=== PATIENT | male | born 1935 | race Caucasian/White ===

== ENCOUNTER 2018-01-16 13:15 | Observation (INO) ==
[2018-01-16] MEDS ORDERED: ONDANSETRON 4 MG/2 ML VIAL IV STA (13:27)
[2018-01-16] MEDS ORDERED: ASPIRIN 325 MG TABLET PO STA (13:27)
[2018-01-16] MEDS ORDERED: MORPHINE 4 MG/1 ML VIAL IV STA (13:27)
[2018-01-16] MEDS ORDERED: NITROGLYCERIN 2% OINT 1 INCH/GM PACK TOP STA (13:27)
[2018-01-16] MEDS ORDERED: ALUM/MAG/SIMETH/LIDO VISC 1:1 30 ML BOTTLE PO STA (13:27)
[2018-01-16 14:16] LABS: Basophils % 0.5 % (0.0-0.8); Eosinophils # 0.2 10*3/uL (0.0-0.87); Eosinophils % 2.8 % (0.00-10.9); Hematocrit 43.2 VOL% (42.0-52.0); Hemoglobin 14.7 GM/DL (14.0-18.0); Immature Granulocytes % 0.1 %; Immature Granulocytes Absolute 0.01 #; Lymphocytes # 1.6 10*3/uL (1.4-4.0); Lymphocytes % 20.5 % (21.2-54.2); Mean Corpuscular Hemoglobin 33 PG (27-34); Mean Corpuscular Volume 95.6 FL (87-102); Mean Platelet Volume 9.1 FL (9.6-12.0); Monocytes # 0.7 10*3/uL (0.11-0.8); Monocytes % 8.3 % (1.7-12.7); Neutrophils # 5.3 10*3/uL (1.4-7.4); Neutrophils % 67.8 % (38.7-73.9); Platelet Count 235 T/CUMM (130-400); Red Blood Count 4.52 MC/CUMM (3.8-5.5); Red Cell Distribution Width 12.7 % (9.3-17.3); White Blood Count 7.8 T/CUMM (4-12)
[2018-01-16 14:26] LABS: PT Patient Result 10.1 SECS
[2018-01-16 14:52] LABS: Albumin 3.5 G/DL (3.4-5.0); Bilirubin,Total 1.9 MG/DL (0.2-1.0); Calcium 8.9 MG/DL (8.5-10.1); Osmolality,Calculated 281.3 MOS/KG (273-304); Potassium 4.4 MMOL/L (3.5-5.1)
[2018-01-16 15:05] LABS: Apearance,Urine CLEAR (Clear); Bilirubin,Urine Negative (Negative); Blood, Urine Negative (Negative); Glucose,Urine (UA) Negative (Negative); Ketones,Urine Negative (Negative); Mucus,Urine Occasional /LPF (Occasional); Nitrite,Urine Negative (Negative); Protein,Urine Negative; Squamous Epithelial Cell,Urine Occasional /HPF (0-10); Urine Color Yellow (Yellow); Urine Specific Gravity 1.006 (1.001-1.035); Urine Urobilinogen < 2.0 EU/DL (0.2-1.0); WBC,Urine <1 /HPF (0-6)
[2018-01-16] MEDS ORDERED: ENOXAPARIN 100 MG/ML SYRINGE SUBCUT STA (15:08)
[2018-01-16] MEDS ORDERED: ONDANSETRON 4 MG/2 ML VIAL IV PRN (15:55)
[2018-01-16] MEDS: MORPHINE 4 MG/1 ML VIAL IV PRN ×2 (16:27→20:00)
[2018-01-16 16:48] LABS: Risk Ratio 4.57; VLDL CHOLESTEROL 36.2 MG/DL
[2018-01-16] MEDS ORDERED: CELECOXIB 200 MG CAPSULE PO SCH (17:00)
[2018-01-16] MEDS ORDERED: TAMSULOSIN 0.4 MG CAPSULE PO SCH (18:00)
[2018-01-16] MEDS ORDERED: ASPIRIN EC 325 MG TABLET PO SCH (19:00)
[2018-01-16] MEDS ORDERED: DUTASTERIDE 0.5 MG CAPSULE PO SCH (19:00)
[2018-01-16] MEDS: NITROGLYCERIN 2% OINT 1 INCH/GM PACK TOP SCH ×2 (19:17→23:42)
[2018-01-16] MEDS ORDERED: DORZOLAMIDE/TIMOLOL OPH SOLN 10 ML BOTTLE BOTH EYES SCH (21:00)
[2018-01-17] MEDS ORDERED: ENOXAPARIN 60 MG/0.6 ML SYRINGE SUBCUT SCH (04:00)
[2018-01-17] MEDS: NITROGLYCERIN 2% OINT 1 INCH/GM PACK TOP SCH ×2 (05:28→17:57)
[2018-01-17 08:39] LABS: Calcium 8.3 MG/DL (8.5-10.1); Osmolality,Calculated 281.3 MOS/KG (273-304); Potassium 4.2 MMOL/L (3.5-5.1)
[2018-01-17] MEDS ORDERED: PANTOPRAZOLE 40 MG TABLET PO SCH (09:00)
[2018-01-17] MEDS ORDERED: REGADENOSON 0.4 MG/5 ML SYRINGE IV ONE (13:53)
[2018-01-17 17:56] VITALS: BP 136/82
[2018-01-17] MEDS ORDERED: SIMVASTATIN 40 MG TABLET PO SCH (21:00)
[2018-01-18] MEDS ORDERED: ASPIRIN EC 81 MG TABLET PO SCH (09:00)
== END 2018-01-17 18:38 | disposition home or self-care (01) ==
LOC: N.ED 13:15 → N.EDINP 13:15 → N.2E 16:43
PROVIDERS: ADMIT Internal Medicine; ATTEND Internal Medicine